=== PATIENT | female | born 1970 | race Caucasian/White ===

== ENCOUNTER 2019-08-09 10:47 | Emergency (ER) | payer BC, SELFPAY ==
--- NOTE | ~2019-08-09 | XR_ITS ---
EXAMINATION: XR chest 1V EXAM DATE: 08/09/2019 13:31 INDICATION: Dizziness. TECHNIQUE: Portable AP frontal chest x-ray was obtained. Comparison is made to prior examination from 06/26/2019. FINDINGS: The lungs are clear. There are no pleural effusions. The cardiomediastinal silhouette is within normal limits. There is no pneumothorax suspected. The bones and soft tissues are unremarkab le. IMPRESSION: Normal chest x-ray exam. Reviewed, dictated and finalized at location B. RUCTIONAL LEADER IMPRESSION: Normal chest x-ray exam.
--- NOTE | ~2019-08-09 | CT_ITS ---
EXAMINATION: CT brain wo con EXAM DATE: 08/09/2019 13:31 INDICATION: Dizziness. TECHNIQUE: Spiral CT of the head was performed without contrast. Axial, coronal and sagittal images were reviewed. The dose-length product (DLP) for this examination was 605.33 mGy-cm. The exposure w as tailored according to patient size, and iterative reconstruction (ASIR) was used as additional dos e reduction technique. There is no prior study for comparison. FINDINGS: There is no acute intraparenchymal hemorrhage. No evidence of intraparenchymal brain mass lesion. No evidence of acute infarction. There is no mass effect or midline shift. The ventricles are normal in size. There are no extra-axial collections. There are no acute calvarial fractures. T he orbits are unremarkable. Soft tissue is unremarkable. The visualized sinuses and mastoid air everardo ls are well aerated. IMPRESSION: 1. Unremarkable head CT examination. Reviewed, dictated and finalized at location B. RECAPPER
[2019-08-09 10:54] VITALS: BP 154/93; PULSE 90; RESP 20; TEMP 36.9; O2SAT 97
[2019-08-09 10:56] VITALS: BP 199/99; PULSE 84; RESP 14; O2SAT 97
[2019-08-09 10:57] VITALS: PULSE 74; RESP 16; O2SAT 99
[2019-08-09 11:00] VITALS: PULSE 75; RESP 14; O2SAT 94
--- NOTE | 2019-08-09 12:16 | ED.DIZZY ---
HPI - Dizziness General Chief Complaint: Dizziness Stated Complaint: DIZZY, NAUSEA Time Seen by Provider: 08/09/19 12:06 Source: patient and RN notes reviewed Mode of arrival: ambulatory Limitations: no limitations History of Present Illness HPI Narrative: Pt is a 48 y/o female with a Hx of HTN, who presents to the ED with c/o dizziness starting yesterday morning. She notes that she suddenly developed dizziness while getting up yesterday morning. Pt describes her dizziness as room spinning. She notes that she has had nausea and vomiting ever since her symptoms began yesterday morning. Pt also reports troubled gait due to her dizziness, but denies any rhinorrhea, sneezing, cough, sore throat, or ear ache. She notes that changes in body position and loud noise aggravate her dizziness. Pt denies any PMHx of vertigo. She does note having a Hx of marijuana use, but states that she hasn't smoked marijuana recently. MD elicited complaint: dizziness Onset (ago): day(s) (1) Timing: sudden onset Description: room spinning History of similar symptoms: No Exacerbating factors: change in body position and other (loud noises) Associated symptoms: nausea and vomiting Associated neuro symptoms: gait ataxia Related Data Allergies Allergy/AdvReac Type Severity Reaction Status Date / Time Penicillins Allergy Mild rash Verified 08/09/19 11:03 lisinopril AdvReac Intermediate cough Verified 08/09/19 11:03 Review of Systems Review of Systems: All systems reviewed & are unremarkable except as noted in HPI and below ENT: Denies otalgia, Denies nasal discharge, Denies sore throat and Denies other (sneezing) Respiratory: Respiratory: Denies cough Gastrointestinal: Gastrointestinal: Reports nausea and Reports vomiting Neurologic: Reports abnormal gait and Reports dizziness [facility] Past Medical History Medical History Alcohol abuse BP (high blood pressure) Surgical History Surgical History No significant past surgical history Social History Social History Smoking status: Never smoker Second hand tobacco smoke exposure: Yes Alcohol intake: current Drinks per week: 2 Substance use type: marijuana Gender identity (if verbalized by the patient): Female Comments PCP is Dr. Uribe. Exam Narrative: Exam Narrative: General appearance: Well-developed, well-nourished Skin: Normal color Head: Normocephalic, nontraumatic Eyes: Clear conjunctiva ENT: Oropharynx normal, ears normal, nose normal Neck: Supple, nontender Chest and respiratory: Airway patent, no respiratory distress, no accessory muscle use Heart: Regular rate/rhythm Abdomen: Soft, nontender, no organomegaly, quiet bowel sounds Vascular: Normal peripheral pulses, normal capillary refill. Musculoskeletal: Normal range of motion, nontender back Neurologic: Alert and oriented ?3, [employer] is normal as tested, no gross motor deficit Course Course Emergency Course: Improving Vital Signs Vital signs: Vital Signs Temperature 36.9 C 08/09/19 10:54 Pulse Rate 90 08/09/19 10:54 Respiratory Rate 20 08/09/19 10:54 Blood Pressure 154/93 H 08/09/19 10:54 Pulse Oximetry 97 08/09/19 10:54 Temperature 36.9 C 08/09/19 10:54 Pulse Rate 102 H 08/09/19 14:03 Respiratory Rate 14 08/09/19 11:00 Blood Pressure 180/98 H 08/09/19 14:03 Pulse Oximetry 94 08/09/19 11:00 MDM - Dizziness MDM Narrative Medical decision making narrative: Benign positional vertigo is my concern. Labs, CT head, UA, chest x-ray ordered. Further plan to foll
--- NOTE | 2019-08-09 12:48 | ECG_ITS ---
Measurements Intervals Cameron Rate: 79 P: 15 MN: 139 QRS: 15 QRSD: 113 T: 42 QT: 381 QTc: 438 Interpretive Statements SINUS RHYTHM INCOMPLETE RIGHT BUNDLE BRANCH BLOCK BORDERLINE ECG Electronically Signed On 08-09-2019 13:50:36 [employer] E[employer]OR by Handy Plok D.O.
[2019-08-09 12:51] VITALS: BP 179/98; PULSE 87
[2019-08-09] MEDS: ONDANSETRON INJ 4 MG/2 ML VIAL IV PUSH (13:09)
[2019-08-09] MEDS: DIAZEPAM 5 MG TABLET PO (13:10)
[2019-08-09] MEDS: MECLIZINE HCL 25 MG TABLET PO (13:10)
[2019-08-09 13:20] LABS: Basophils Absolute Auto 0.1 K/mm3 (0.0-0.1); Basophils Percent Auto 0.8 % (0.2-1.2); Eosinophils Absolute Auto 0.1 K/mm3 (0-0.3); Eosinophils Percent Auto 0.5 % (0-4.4); Hematocrit 46.7 % (37.0-47.0); Hemoglobin 15.7 g/dL (12.0-15.0); Immature Granulocyte Absolute 0.04 K/mm3 (0.00-0.031); Immature Granulocyte Percent A 0.4 % (0-0.5); Lymphocytes Absolute Auto 2.13 K/mm3 (0.9-3.2); Lymphocytes Percent Auto 20.2 % (18.3-44.2); Mean Corpuscular HGB Conc 33.6 g/dl (32-36); Mean Corpuscular Hemoglobin 31.5 pg (26-34); Mean Corpuscular Volume 93.8 fl (80-100); Mean Platelet Volume 10.4 fl (7.4-10.4); Monocytes Absolute Auto 0.4 K/mm3 (0.1-0.6); Monocytes Percent Auto 3.9 % (2.6-8.5); Neutrophils Absolute Auto 7.8 K/mm3 (1.3-6.7); Neutrophils Percent Auto 74.2 % (45.5-73.1); Platelet Count Result 227 k/mm3 (150-375); Red Blood Count 4.98 M/mm3 (4.2-5.4); Red Cell Distribution Width 12.8 % (11.5-14.5); White Blood Count 10.5 K/mm3 (4.5-10.0)
[2019-08-09 13:31] LABS: Alanine Aminotransferase 32 U/L (4-35); Albumin Level 4.7 g/dL (3.5-5.1); Alkaline Phosphatase 99 U/L (38-126); Aspartate Amino Transferase 31 U/L (14-36); Bilirubin,Total 0.7 mg/dL (0.2-1.3); Blood Urea Nitrogen 13 mg/dL (7-17); Calcium 9.5 mg/dL (8.4-10.2); Carbon Dioxide 27 mmol/L (22-30); Chloride 99 mmol/L (98-107); Estimated CRCL calculation 117 ml/min; Estimated Glomerular Filt Rate > 60; Glucose 108 mg/dL (65-105); Potassium 3.3 mmol/L (3.4-5.0); Sodium 137 mmol/L (137-145)
[2019-08-09 13:43] LABS: Troponin I < 0.012 ng/mL (0.000-0.034)
--- NOTE | 2019-08-09 13:49 | PC.NURSE ---
pt amb to bathroom. states is feeling better though still dizzy when turning head. walks in straight line with slow gait.
[2019-08-09 14:01] LABS: Add Urine Microscopic? YES; Appearance Urine Clear (Clear); Bilirubin Urine Negative (Negative); Blood Urine 2+ (Negative); Color Urine Yellow (Yellow); Glucose Urine UA Negative (Negative); Ketones Urine Negative (Negative); Leukocyte Esterase Ur Negative LEU/UL (Negative); Mucus Urine Rare /lpf; Nitrate Urine Negative (Negative); Protein Urine 1+ mg/dL (Negative); Specific Grav Ur 1.019 (1.001-1.035); Squamous Epithelial Cell Urine Rare /hpf (Few); Urobilinogen Urine Negative mg/dL (<2.0); WBC Urine 0-3 /hpf
[2019-08-09 14:03] VITALS: BP 176/101; BP 180/98; PULSE 102; PULSE 90
== END 2019-08-09 14:40 | disposition home or self-care (01) ==
PROVIDERS: Emergency Provider Emergency Medicine; PCP Family Medicine
DX: R42 Dizziness and giddiness (principal); I10 Essential (primary) hypertension; I45.10 Unspecified right bundle-branch block
CPT/HCPCS: 36415; 70450; 71045; 80053; 81001; 81025; 84484; 85025; 93005; 96374; 99284; A9270; J2405